=== PATIENT | male | born 1940 | race Caucasian/White ===

== ENCOUNTER 2019-01-24 13:12 | Observation (INO) | payer MEDICARE ==
[~2019-01-24] VITALS: Ht 172.7 cm; Wt 63.0 kg
--- NOTE | 2019-01-24 13:26 | NUR ---
EMS TO ER ROOM 6, TO BED
--- NOTE | 2019-01-24 13:35 | NUR ---
NIH PERFORMED, FAMILY STATES NEW ONSET PSEUDOSEIZURE DIAGNOSIS 1 MONTH AGO, HAD SIMILIAR EPISODE 1 MONTH AGO AND EXTENSIVE ADMISSION [facility]. ER MD EVALUATED PATIENT, NOT STROKE ALERT AT THIS TIME DUE TO SEIZURE ACTIVITY.
[2019-01-24 13:51] LABS: HEMATOCRIT 34.2 % (39.0-50.0); IMMATURE GRANULOCYTES 0.2 % (0.0-5.0); MEAN CELL VOLUME 85.7 fL CALC (80.0-100.0); MEAN CORPUSCULAR HGB 27.6 pG CALC (26.0-32.0); MEAN CORPUSCULAR HGB CONC 32.2 g/L CALC (32.0-36.0); NEUT# 3.63 thou/uL (1.82-7.42); RED BLOOD COUNT 3.99 mill/uL (4.70-6.10); RED CELL DISTRI WIDTH 14.4 % (11.5-15.5)
[2019-01-24 14:15] LABS: ALBUMIN 3.2 g/dL (3.2-5.0); ALKALINE PHOSPHATASE 81 u/l (38-126); ANION GAP 13 (6-22 (CALC)); BILIRUBIN, TOTAL 0.8 mg/dL (0.0-1.4); BUN 21 mg/dL (8-23); BUN/CREATININE RATIO 13 (12-20 (CALC)); CARBON DIOXIDE 22 mmol/l (22-30); CHLORIDE 108 mmol/l (95-108); CREATININE 1.7 mg/dL (0.7-1.3); GFR 39 ML/MIN (>=60 (CALC)); GFR FOR AFR.AMER. 47 ML/MIN (>=60 (CALC)); SGOT/AST 18 u/l (19-48); SODIUM 139 mmol/l (137-146); TOTAL PROTEIN 5.8 g/dL (6.3-8.2)
--- NOTE | 2019-01-24 14:15 | NUR ---
pt offered iv medication for nausea. pt refused.
--- NOTE | 2019-01-24 14:27 | NUR ---
pt resting on stretcher w/eyes closed. responds to verbal stimuli. a&ox3. maew. advised of wait time.
--- NOTE | 2019-01-24 15:01 | NUR ---
DR REED DISCUSSING POC W/PT AND PT'S DAUGHTER.
[2019-01-24] MEDS ORDERED: MEMANTINE HCL5 MG PO (16:45)
[2019-01-24] MEDS ORDERED: DONEPEZIL10 MG PO (16:46)
[2019-01-24] MEDS ORDERED: PANTOPRAZOLE SO40 M1 PO (16:46)
[2019-01-24] MEDS ORDERED: ATORVASTATIN CA40 MG PO (16:47)
--- NOTE | 2019-01-24 16:54 | NUR ---
REPORT PROVIDED TO NIURKA SLATER, ON [employer].
--- NOTE | 2019-01-24 16:58 | NUR ---
REPORT PROVIDED TO NIURKA SLATER, ON [facility]. PT TO [facility]SURG VIA STRETCHER IN NO APPARENT DISTRESS. TELEMETRY IN PLACE. IV SITE HEALTHY.
--- NOTE | 2019-01-24 17:00 | NUR ---
PT ARRIVED TO MS2 VIA STRETCHER ACCOMPANIED BY ER NURSE. PT ALERT AND ORIENTED X3, PT AMBULATED TO ROOM AND STANDING SCALE FROM STRETCHER, NO SIGNS OF DISTRESS NOTED, PT AMBULATED WELL TO BED. ORIENTED PT TO ROOM AND CALL LIGHT, DISCUSSED POC, PT IN AGREEMENT. ADMISSION ASSESSMENT COMPLETED. PT VOICES NO NEEDS OR COMPLAINTS AT THIS TIME. CALL LIGHT IN REACH,CONTINUE TO MONITOR.
[2019-01-24 17:12] VITALS: BP 116/76
--- NOTE | 2019-01-24 18:00 | NUR ---
ENTERTAINMENT DIRECTOR AT BEDSIDE, OBTAINING MEDICAL HISTORY. CALL LIGHT IN REACH,CONTINUE TO MONITOR.
[2019-01-24 19:00] VITALS: BP 111/68
--- NOTE | 2019-01-24 19:31 | NUR ---
PT ASSESSED, IV FLUSHED AND FLUIDS ADMINISTERED. LUNG SOUNDS ARE CLEAR, ABD SOFT TENDER TO RUQ, ACTIVE BOWEL SOUNDS, REPORTS NORMAL STOOL THIS AM. SKIN INTACT, NO NOTED EDEMA AT THIS TIME. CALL LIGHT IS AT BEDSIDE AND PT ENCOURAGED TO CALL NEEDS ARISE.
[2019-01-24 22:15] VITALS: BP 114/69
[2019-01-24 22:20] VITALS: BP 117/68
[2019-01-24 22:25] VITALS: BP 120/72
[2019-01-24 23:55] VITALS: BP 129/75
[2019-01-25] VITALS (8 sets, daily range): BP systolic 102–129; BP diastolic 63–74
--- NOTE | 2019-01-25 00:12 | NUR ---
PT SLEEPING, BED ALARM PLACED ON. NO S/O DISTRESS NOTED. CALL LIGHT AT SIDE
--- NOTE | 2019-01-25 03:34 | NUR ---
PT IS SLEEPING, NO S/O DISTRESS NOTED. IV FLUIDS RUNNING ORDERS PROVIDE, BED ALARM ON. CALL LIGHT AT SIDE.
--- NOTE | 2019-01-25 05:23 | NUR ---
ORTHOSTATIC BP'S OBTAINED: SUPPINE 104/66 HR58, SITTING 119/74 HR67, STANDING 102/63 HR 65. PT TOLERATED WELL, DENIED ANY DIZZINESS OR LIGHTHEADEDNESS.
--- NOTE | 2019-01-25 09:28 | NUR ---
PT LYING IN BED, NO SIGNS OF DISTRESS NOTED, RESP EVEN AND UNLABORED. DISCUSSED POC, PT IN AGREEMENT. ORTHOSTATIC BP OBTAINED AT THIS TIME. VSS. ASSESSMENT COMPLETED AT THIS TIME. CALL LIGHT IN REACH,CONTINUE TO MONITOR. DAUGHTER BROUGHT IN RECORDS FROM [facility], GIVEN TO STUNT DRIVER TO REVIEW.
--- NOTE | 2019-01-25 13:57 | NUR ---
AND OZZIE TO SEE PT AND DISCUSS POC.
--- NOTE | 2019-01-25 14:07 | NUR ---
DISCUSSED WITH PT AND DAUGHTER FOR DISCHARGE. PT IN AGREEMENT. IV SITE REMOVED, CATHETER INTACT.
--- NOTE | 2019-01-25 14:31 | NUR ---
Discharge instructions given. Patient verbalizes understanding of same. Discharged in stable condition via Wheelchair to Home with family. All belongings sent with pt.
== END 2019-01-25 14:30 | disposition home or self-care (01) ==
LOC: ED 13:12 → ED-I 15:20 → ED 15:36 → MS2 15:37
PROVIDERS: Emergency Medicine; ADMIT Internal Medicine; ATTEND Internal Medicine
DX: R55 Syncope and collapse (principal); C91.10 Chronic lymphocytic leukemia of B-cell type not having achieved remission; N18.3 Chronic kidney disease, stage 3 (moderate); E78.5 Hyperlipidemia, unspecified; F03.90 Unspecified dementia, unspecified severity, without behavioral disturbance, psychotic disturbance, mood disturbance, and anxiety; K21.9 Gastro-esophageal reflux disease without esophagitis; I51.3 Intracardiac thrombosis, not elsewhere classified; E04.1 Nontoxic single thyroid nodule; I51.89 Other ill-defined heart diseases; F17.200 Nicotine dependence, unspecified, uncomplicated; Z86.73 Personal history of transient ischemic attack (TIA), and cerebral infarction without residual deficits
CPT/HCPCS: G0378; J1650